=== PATIENT | male | born 1935 | race Caucasian/White ===

== ENCOUNTER → 2024-01-11 09:05 | Outpatient (REF) | payer MEDICARE, OTHER, SELFPAY | LOC: HWRAD 09:05 | PROVIDERS: ATTENDING PHYSICIAN Specialist; FAMILY PHYSICIAN Family Medicine | DX: M25.511 Pain in right shoulder (principal) | CPT/HCPCS: 73200 ==

== ENCOUNTER 2024-02-05 06:07 | Day surgery (SDC) | payer MEDICARE, OTHER, SELFPAY ==
--- NOTE | 2024-01-09 08:01 | CM ---
Patient is scheduled for an elective R Reverse TSA on 02/05/24- he is a same day patient. Spoke with patient's prior to surgery. Introduced role of Orthopedic Navigator. She reports that she, patient and their adult son live in a two story home.
Currently he functions independently. He does not use any DME. He has had VN services. PCP is Dr. Corona Miller.
Discussed orthopedic program and post surgical plans. Patient will return home when directed by surgeon. Reviewed MD follow up and transition to outpatient therapy. She is in agreement with tentative plan and states that she will be home with
patient and can assist if needed.
Patient will complete online education.
Plan: Orthopedic Navigator will be involved in the care of patient after surgery and will reassess discharge needs at that time.
[2024-01-16 09:30] VITALS: BMI 19.2
[2024-01-16 10:48] LABS: Hematocrit 41.5 % (39.0-52.0); Hemoglobin 13.7 g/dL (13.0-18.0); Mean Corpuscular Hgb 32.6 pg (27.0-31.0); Mean Corpuscular Volume 98.8 fL (80.0-94.0); Mean Platelet Volume 9.6 fL (7.4-10.4); Platelet Count 257 10^3/uL (130-400); Red Cell Dist. Width 12.9 % (11.5-14.5); White Blood Cell Count 6.1 10^3/uL (4.8-10.8)
[2024-01-16 11:14] LABS: Glycohemoglobin (HgbA1c) 5.3 % (4.0-5.6)
[2024-01-16 11:48] LABS: ALT (SGPT) 13 U/L (0-50); AST (SGOT) 28 U/L (17-59); Albumin 4.1 g/dl (3.5-5.0); Alkaline Phosphatase 70 U/L (38-126); Blood Urea Nitrogen 22 mg/dl (9-20); Calcium 9.5 mg/dl (8.4-10.2); Carbon Dioxide 27 mmol/L (22-30); Chloride 105 mmol/L (98-107); Estimated Creatinine Clearance 63 ml/min; Glucose 85 mg/dl (70-99); Potassium 4.1 mmol/L (3.5-5.1); Sodium 138 mmol/L (135-145); eGFR > 60.00
[2024-02-04 09:18] VITALS: BMI 19.2
[2024-02-05 06:21] VITALS: BMI 19.2
[2024-02-05 06:22] VITALS: BP 149/69
[2024-02-05] MEDS: TYLENOL 1000 MG PO (06:38)
[2024-02-05] MEDS: CELEBREX 200 MG PO (06:38)
[2024-02-05] MEDS: NORMOSOL-R 1000 IV (06:38)
== END 2024-02-05 07:36 | disposition home or self-care (01) ==
LOC: SDS 06:07
PROVIDERS: ATTENDING PHYSICIAN Specialist; FAMILY PHYSICIAN Family Medicine; OTHER PHYSICIAN Internal Medicine Cardiovascular Disease
DX: M19.011 Primary osteoarthritis, right shoulder (principal); M17.11 Unilateral primary osteoarthritis, right knee; Z53.8 Procedure and treatment not carried out for other reasons
CPT/HCPCS: 23472; 36415; 80053; 83036; 85027; 87070

== ENCOUNTER 2024-02-29 06:22 | Day surgery (SDC) | payer MEDICARE, OTHER, SELFPAY ==
[2024-02-29] VITALS (10 sets, daily range): BP systolic 115–142; BP diastolic 56–82; BMI 19.1
[2024-02-29] MEDS: TYLENOL 1000 MG PO (09:58)
[2024-02-29] MEDS: CELEBREX 200 MG PO (09:58)
[2024-02-29] MEDS: NORMOSOL-R 1000 IV (09:58)
[2024-02-29] MEDS: ANCEF 5 IV (14:57)
== END 2024-02-29 15:21 | disposition home or self-care (01) ==
LOC: SDS 06:22
PROVIDERS: ATTENDING PHYSICIAN Specialist
DX: M19.011 Primary osteoarthritis, right shoulder (principal)
CPT/HCPCS: 23472; 73020; C1713; C1776

== ENCOUNTER → 2025-02-11 07:18 | Outpatient (REF) | payer MEDICARE, OTHER, SELFPAY | LOC: RCS 07:18 | PROVIDERS: ATTENDING PHYSICIAN Internal Medicine Cardiovascular Disease; FAMILY PHYSICIAN Family Medicine | DX: I48.0 Paroxysmal atrial fibrillation (principal); I25.10 Atherosclerotic heart disease of native coronary artery without angina pectoris | CPT/HCPCS: 93306 ==